=== PATIENT | male | born 1990 | race Hispanic/Latino ===

== ENCOUNTER 2016-11-17 22:20 | Emergency (ER) | payer OTHER ==
[~2016-11-17] VITALS: Ht 175.3 cm; Wt 99.8 kg
[2016-11-17 22:38] VITALS: BP 122/71
--- NOTE | 2016-11-17 22:50 | ED UPPER/LOWER EXTREMITY COMPL ---
History of Present Illness General Chief Complaint: Foot or Ankle Injury Stated Complaint: RIGHT FOOT TOE INJURY Source: patient Exam Limitations: no limitations Vital Signs & Intake/Output Vital Signs & Intake/Output Vital Signs Date Time Temp Pulse Resp B/P Pulse O2 O2 Flow FiO2 Ox Delivery Rate 11/17 2238 98.2 76 20 122/71 98 Allergies Uncoded Allergies: APPLES (03/03/11) DUST (03/03/11) ENVIRONMENTAL ALLERGIES (03/03/11) MOLD (03/03/11) POLLEN (03/03/11) Reconcile Medications Albuterol Sulfate (Proair Hfa) 90 MCG HFA.AER.AD 2 PUF INH Q4-6 PRN PRN ASTHMA (Reported) Naproxen (Naprosyn) 500 MG TABLET 1 TAB PO BID PRN PAIN Triage Note: PER PT JAMMED RT 4TH TOE AT 4 PM HURTS PRETTY BAD. DID NOT TRY ANY OTC MEDS FOR PAIN Triage Nurses Notes Reviewed? yes HPI: This patient is a 26-year-old male who presented to the emergency department today for evaluation of left fourth toe pain. He reported that he jammed his toe this afternoon. He reported the pain gets up to a 9 out of 10, is throbbing , nonradiating, and constant. Worse with ambulation. He did not try taking any medication for the pain prior to arrival in the emergency department. No palliative factors. The patient denied any numbness or tingling. (SHARAN MARCUM PA-C) Past History Travel History Traveled to [place] past 21 day No Medical History Any Pertinent Medical History? see below for history Neurological: NONE EENT: NONE Cardiovascular: NONE Respiratory: asthma Gastrointestinal: NONE Hepatic: NONE Renal: NONE Musculoskeletal: NONE Psychiatric: NONE Endocrine: NONE Surgical History Surgical History: non-contributory Psychosocial History What is your primary language Czech Tobacco Use: Current Daily Use Daily Tobacco Use Amount/Type: => 5 Cigarettes daily Family History Hx Contributory? No (SHARAN MARCUM PA-C) Review of Systems Review of Systems Constitutional: Reports: no symptoms. EENTM: Reports: no symptoms. Respiratory: Reports: no symptoms. Cardiovascular: Reports: no symptoms. Gastrointestinal/Abdominal: Reports: no symptoms. Genitourinary: Reports: no symptoms. Musculoskeletal: Reports: see HPI. Skin: Reports: no symptoms. Neurological/Psychological: Reports: no symptoms. All Other Systems: Reviewed and Negative (TRIXIE CANTU,SHARAN) Physical Exam Physical Exam General Appearance: well developed/nourished, no apparent distress, alert, awake Comments: Well-developed well-nourished person in no acute distress HEENT: Head normocephalic, moist mucous membranes Neck: Supple, no lymphadenopathy Back: Normal inspection Respiratory: No respiratory distress. Speaking in full sentences Left foot: No effusions overlying erythema or ecchymosis to the joint spaces. Full range of motion of the digits. Tenderness to palpation over the fourth digit. Capillary refill less than 2 seconds. Dorsalis pedis 2+ and strong Neuro: Alert and oriented x3 Psych: Mood affect normal, normal memory normal judgment. Skin: Warm and dry, no rash on exposed skin (TRIXIE CANTU,SHARAN) Progress Differential Diagnosis: arterial insufficiency, cellulitis, compartment syndrome , contusion, dislocation, fracture, tendon injury Plan of Care: Orders Procedure Date/time Status XRY-FOOT TWO VIEWS, LEFT 11/17 2232 Active Diagnostic Imaging: Viewed by Me: Radiology Read. Discussed w/RAD: Radiology Read. Radiology Impression: PATIENT: LEANNE CROCKER PRESENT AGE: 26 PATIENT ACCOUNT NO: [id number] : 90 LOCATION: [facility] ORDERING PHYSICIAN: SHARAN MARCUM PA-C SERVICE DATE: 11/17/16 EXAM TYPE: RAD - XRY-FOOT COMPLETE, LEFT EXAMINATION: XR FOOT, LEFT CLINICAL INFORMATION: Fall. Left fourth toe fracture versus dislocation. COMPARISON: None TECHNIQUE: AP, lateral, and oblique views of the left foot. FINDINGS: There is soft tissue swelling of the fourth digit. No fracture or dislocation. Joint spaces are maintained. Alignment is maintained. IMPRESSION: Fourth digit soft tissue swelling. No fracture or malalignment. DICTATED BY: CHAPINCITO SAINI MD DATE/TIME DICTATED:11/17/162299 [employer]:DES DATE/TIME TRANSCRIBED:11/17/162299 CONFIDENTIAL, DO NOT COPY WITHOUT APPROPRIATE AUTHORIZATION. <Electronically signed in Other Vendor System> SIGNED BY: CHAPINCITO SAINI MD 11/17/162305 (SHARAN MARCUM PA-C) Departure Departure Disposition: HOME OR SELF CARE Condition: Stable Clinical Impression Primary Impression: Contusion Qualifiers: Encounter type: initial encounter Contusion area: toe Toe: lesser toe Damage to nail status: without damage Laterality: left Qualified Code: S90.122A - Contusion of left lesser toe(s) without damage to nail, initial encounter Referrals: SOO SINGH,EARLE Martin (PCP/Family) Additional Instructions: Take medication for pain as prescribed. Weightbearing as tolerated. Apply ice to the affected area for 15-20 minutes, 3-4 times a day. Elevate your foot when possible. Return for any worsening symptoms or concerns. Departure Forms: Customer Survey General Discharge Information Prescriptions: Current Visit Scripts Naproxen (Naprosyn) 1 TAB PO BID PRN PAIN #15 TAB (TRIXIE CANTU,SHARAN) PA/GRAPHICS EDIT TECHNICIAN Co-Sign Statement Statement: ED Attending supervision documentation- [] I saw and evaluated the patient. I have also reviewed all the pertinent lab results and diagnostic results. I agree with the findings and the plan of care as documented in the PA's/GRAPHICS EDIT TECHNICIAN's documentation. x I have reviewed the ED Record and agree with the PA's/GRAPHICS EDIT TECHNICIAN's documentation. [] Additions or exceptions (if any) to the PAs/GRAPHICS EDIT TECHNICIAN's note and plan are summarized below: [] (ESPERANZA SINGH,LISA)
[2016-11-17] MEDS ORDERED: PROAIR HFA8.5 GM INH (23:01)
--- NOTE | 2016-11-17 23:06 | RADIOLOGY REPORT ---
EXAMINATION: XR FOOT, LEFT CLINICAL INFORMATION: Fall. Left fourth toe fracture versus dislocation. COMPARISON: None TECHNIQUE: AP, lateral, and oblique views of the left foot. FINDINGS: There is soft tissue swelling of the fourth digit. No fracture or dislocation. Joint spaces are maintained. Alignment is maintained. IMPRESSION: Fourth digit soft tissue swelling. No fracture or malalignment.
[2016-11-17] MEDS ORDERED: NAPROSYN500 M1 PO (23:16)
== END 2016-11-17 23:24 ==
LOC: ERH 22:20
DX: S90.122A Contusion of left lesser toe(s) without damage to nail, initial encounter (principal); W23.0XXA Caught, crushed, jammed, or pinched between moving objects, initial encounter
CPT/HCPCS: 73630-LT